=== PATIENT | male | born 1985 | race Hispanic/Latino ===

== ENCOUNTER 2021-01-30 22:28 | Inpatient (IN) | payer OTHER, SELFPAY ==
[2021-01-30 23:44] LABS: Anion Gap 15 mmol/L (10-20); BUN (Urea Nitrogen) 8 mg/dL (8.9-20.6); Calc. Creatinine Clearance 179 mL/min (70-130); Calcium 8.6 mg/dL (7.8-10.44); Carbon Dioxide 24 mmol/L (22-29); Chloride 103 mmol/L (98-107); Glucose 294 mg/dL (70-105); Magnesium 1.6 mg/dL (1.6-2.6); Phosphorus 2.4 mg/dL (2.3-4.7); Potassium 3.8 mmol/L (3.5-5.1); Sodium 138 mmol/L (136-145)
[2021-01-31] MEDS ORDERED: Communication Order-Pharmacy FS PRN (00:02)
[2021-01-31] MEDS ORDERED: D5 1/2 NS w/20 mEq KCL 1,000 ML IV PRN (00:06)
[2021-01-31] MEDS ORDERED: Sodium Chloride 0.9% 1,000 ML IV PRN ×2 (00:06)
[2021-01-31] MEDS ORDERED: NS 0.9% w/ 20 MEQ KCL 1,000 ML IV PRN (00:06)
[2021-01-31] MEDS ORDERED: Dextrose 5 %-0.45 % NaCl 1,000 ML IV PRN (00:06)
[2021-01-31] MEDS ORDERED: Electrolyte Replacement Protocol IVPB SCH (00:06)
[2021-01-31] MEDS ORDERED: INSULIN REGULAR IN 0.9 % NACL 100 UNIT in Premix Bag 1 BAG IVPB SCH (00:30)
[2021-01-31] MEDS ORDERED: Magnesium 2 GM/50 ML 2 GM in Premix Bag 1 BAG IVPB SCH ×2 (00:30→05:30)
[2021-01-31] MEDS: NS 0.9% w/ 20 MEQ KCL 1,000 ML IV PRN ×2 (01:06→04:46)
[2021-01-31] MEDS: Acetaminophen 325 MG TAB PO PRN ×2 (01:43→09:00)
[2021-01-31] MEDS: Clindamycin/D5W 900 MG in Premix Bag 1 BAG IVPB SCH ×2 (03:42→11:48)
[2021-01-31 03:47] LABS: Hemoglobin 10.6 g/dL (13.5-17.5); Mean Corpuscular Hemoglobin 29.4 pg (27.0-33.0); Mean Corpuscular Volume 88.9 fl (81.2-95.1); Mean Platelet Volume 9.2 fl (7.4-10.4); Platelet Count 415 10x3/uL (150-450); Red Blood Cell (RBC) Count 3.61 10x6/uL (4.32-5.72); White Blood Cell (WBC) Count 12.5 10x3/uL (3.5-10.5)
[2021-01-31 04:21] LABS: Syphilis Antibody Nonreactive (Nonreactive); Syphilis Antibody Index 0.04 S/CO (<1.00 Non-Reactive)
[2021-01-31 04:22] LABS: Hep B Surf Ag Non-Reactive S/CO (NonReactive)
[2021-01-31 04:24] LABS: HBSAg Index 0.17 S/CO (0-0.99)
[2021-01-31 04:33] LABS: Anion Gap 11 mmol/L (10-20); BUN (Urea Nitrogen) 11 mg/dL (8.9-20.6); Calc. Creatinine Clearance 193 mL/min (70-130); Calcium 8.9 mg/dL (7.8-10.44); Carbon Dioxide 27 mmol/L (22-29); Chloride 106 mmol/L (98-107); Glucose 110 mg/dL (70-105); Potassium 3.3 mmol/L (3.5-5.1); Sodium 141 mmol/L (136-145)
[2021-01-31] MEDS: Vancomycin HCl 1 GM in Sodium Chloride 0.9% 250 ML 250 ML IVPB SCH ×3 (04:46→19:53)
[2021-01-31 04:53] LABS: Phosphorus 2.2 mg/dL (2.3-4.7)
[2021-01-31] MEDS: Potassium Chloride 20 MEQ in Premix Bag 1 BAG IVPB SCH ×2 (06:41→09:00)
[2021-01-31] MEDS ORDERED: NS 0.9% w/ 20 MEQ KCL 1,000 ML ONE (08:17)
[2021-01-31] MEDS ORDERED: Potassium Chloride 20 MEQ/100 ML PREMIX BAG ONE (08:17)
[2021-01-31 09:00] LABS: Anion Gap 12 mmol/L (10-20); BUN (Urea Nitrogen) 9 mg/dL (8.9-20.6); Calc. Creatinine Clearance 236 mL/min (70-130); Calcium 7.7 mg/dL (7.8-10.44); Carbon Dioxide 22 mmol/L (22-29); Chloride 108 mmol/L (98-107); Glucose 193 mg/dL (70-105); Potassium 4.6 mmol/L (3.5-5.1); Sodium 137 mmol/L (136-145)
[2021-01-31] MEDS ORDERED: Lantus 1000 UNITS/10 ML VIAL SC SCH ×2 (09:00→10:30)
[2021-01-31] MEDS: Cefepime 2 GM in Sodium Chloride 0.9% 100 ML IVPB SCH ×2 (09:00→19:54)
[2021-01-31] MEDS: Pantoprazole 40 MG VIAL IVP SCH (09:00)
[2021-01-31] MEDS: Enoxaparin Sodium 40 MG/0.4 ML SYRINGE SC SCH (10:50)
[2021-01-31 11:57] LABS: Hep C IgG Ab Non-Reactive (NonReactive); Hep C Index 0.11 S/CO (0-0.79)
[2021-01-31 15:12] LABS: Potassium 3.7 mmol/L (3.5-5.1)
[2021-01-31] MEDS ORDERED: Dextrose 5% in Water 1,000 ML IV PRN (16:45)
[2021-01-31] MEDS ORDERED: Dextrose 50% Abboject 50 ML SYRINGE SLOW IVP PRN (16:45)
[2021-01-31] MEDS ORDERED: Diazepam 2 MG TAB PO PRN (17:37)
[2021-01-31] MEDS ORDERED: Potassium Bicarbonate/Cit Ac 20 MEQ TAB PO SCH (17:45)
[2021-01-31] MEDS ORDERED: Diazepam 5 MG TAB PO SCH (18:30)
[2021-01-31 19:32] LABS: Vancomycin, Trough 9.1 ug/mL
[2021-01-31] MEDS: HumaLOG 300 UNITS/3 ML VIAL SC PRN (20:10)
[2021-02-01] MEDS ORDERED: VANCOMYCIN 1.25 GM/250 ML BAG 1 GM in Premix Bag 1 BAG IVPB SCH (04:00)
[2021-02-01 05:08] LABS: Anion Gap 15 mmol/L (10-20); BUN (Urea Nitrogen) 10 mg/dL (8.9-20.6); Calc. Creatinine Clearance 166 mL/min (70-130); Calcium 8.7 mg/dL (7.8-10.44); Carbon Dioxide 25 mmol/L (22-29); Chloride 101 mmol/L (98-107); Glucose 387 mg/dL (70-105); Potassium 4.4 mmol/L (3.5-5.1); Sodium 137 mmol/L (136-145)
[2021-02-01 05:22] LABS: HIV (1/2) Antibody/Antigen Non-Reactive (NonReactive); HIV 1/2 INDEX 0.07 S/CO (<1.00)
[2021-02-01] MEDS: Cefepime 2 GM in Sodium Chloride 0.9% 100 ML IVPB SCH (08:30)
[2021-02-01] MEDS: Pantoprazole 40 MG VIAL IVP SCH (08:30)
[2021-02-01] MEDS ORDERED: Lantus 1000 UNITS/10 ML VIAL SC SCH (09:00)
[2021-02-01] MEDS ORDERED: Neomycin-Polymyxin 1 ML AMP ONE (10:59)
[2021-02-01] MEDS ORDERED: Ondansetron PF 4 MG/2 ML Vial ONE (11:10)
[2021-02-01] MEDS ORDERED: Midazolam HCl 2 mg/2 ml Vial ONE (11:10)
[2021-02-01] MEDS ORDERED: Fentanyl 250 MCG/5 ML VIAL ONE (11:10)
[2021-02-01] MEDS ORDERED: PROPOFOL 20 ML ONE ×2 (11:10→11:37)
[2021-02-01] MEDS ORDERED: Lidocaine 1% PF 5 ML VIAL ONE (11:10)
[2021-02-01] MEDS ORDERED: VANCOMYCIN 1.25 GM/250 ML BAG 1.25 GM in Premix Bag 1 BAG IVPB SCH ×2 (12:00→15:00)
[2021-02-01 13:17] LABS: BF Color Red; Clarity Hazy (Clear); Tube # EDTA
[2021-02-01] MEDS: Enoxaparin Sodium 40 MG/0.4 ML SYRINGE SC SCH (13:42)
[2021-02-01] MEDS: HumaLOG 300 UNITS/3 ML VIAL SC PRN ×3 (13:56→21:45)
[2021-02-01 14:17] LABS: BF Segmented Neutrophils 97 %; Cell Count Non Hematic 2 %; Lymphocytes 1 %
[2021-02-01] MEDS: traMADol HCl 50 MG TAB PO PRN (16:15)
[2021-02-01] MEDS ORDERED: Lorazepam 1 MG TAB PO SCH (19:30)
[2021-02-01] MEDS: Lantus 1000 UNITS/10 ML VIAL SC SCH (21:05)
[2021-02-01] MEDS: VANCOMYCIN 1.25 GM/250 ML BAG 1.25 GM in Premix Bag 1 BAG IVPB SCH (21:28)
[2021-02-02] MEDS: VANCOMYCIN 1.25 GM/250 ML BAG 1.25 GM in Premix Bag 1 BAG IVPB SCH ×3 (05:12→22:00)
[2021-02-02] MEDS: HumaLOG 300 UNITS/3 ML VIAL SC PRN ×4 (05:53→20:17)
[2021-02-02 06:15] LABS: Hemoglobin 9.7 g/dL (13.5-17.5); Mean Corpuscular HGB CONC 32.8 g/dL (32.0-36.0); Mean Corpuscular Hemoglobin 30.2 pg (27.0-33.0); Mean Corpuscular Volume 92.2 fl (81.2-95.1); Mean Platelet Volume 9.4 fl (7.4-10.4); Platelet Count 438 10x3/uL (150-450); RBC Distribution Width 12.2 % (11.5-14.5); Red Blood Cell (RBC) Count 3.21 10x6/uL (4.32-5.72); White Blood Cell (WBC) Count 10.4 10x3/uL (3.5-10.5)
[2021-02-02 06:26] LABS: Anion Gap 13 mmol/L (10-20); BUN (Urea Nitrogen) 17 mg/dL (8.9-20.6); Calc. Creatinine Clearance 179 mL/min (70-130); Calcium 8.6 mg/dL (7.8-10.44); Carbon Dioxide 28 mmol/L (22-29); Chloride 99 mmol/L (98-107); Glucose 347 mg/dL (70-105); Potassium 4.4 mmol/L (3.5-5.1); Sodium 136 mmol/L (136-145)
[2021-02-02 06:35] LABS: MDiff Complete? YES
[2021-02-02 06:38] LABS: Eosinophils 2 % (0-10); Lymphocytes 23 % (21-51); Monocytes 8 % (0-10); Neutrophil 67 % (42-75)
[2021-02-02 06:40] LABS: Platelet Morphology Comment Appears Adequate; RBC Morphology Normal
[2021-02-02] MEDS ORDERED: Glimepiride 2 MG TAB PO SCH ×2 (08:00→08:30)
[2021-02-02] MEDS: Enoxaparin Sodium 40 MG/0.4 ML SYRINGE SC SCH (09:20)
[2021-02-02] MEDS: Lorazepam 1 MG TAB PO SCH (09:21)
[2021-02-02] MEDS: Pantoprazole 40 MG VIAL IVP SCH (09:21)
[2021-02-02] MEDS: Lantus 1000 UNITS/10 ML VIAL SC SCH ×2 (09:21→20:16)
[2021-02-02 13:42] LABS: Vancomycin, Trough 15.5 ug/mL
[2021-02-03] MEDS: traMADol HCl 50 MG TAB PO PRN (00:58)
[2021-02-03 04:42] LABS: Anion Gap 13 mmol/L (10-20); BUN (Urea Nitrogen) 19 mg/dL (8.9-20.6); Calc. Creatinine Clearance 182 mL/min (70-130); Calcium 8.6 mg/dL (7.8-10.44); Carbon Dioxide 29 mmol/L (22-29); Chloride 101 mmol/L (98-107); Glucose 345 mg/dL (70-105); Potassium 4.5 mmol/L (3.5-5.1); Sodium 138 mmol/L (136-145)
[2021-02-03 05:48] VITALS: BMI 27.1
[2021-02-03] MEDS: VANCOMYCIN 1.25 GM/250 ML BAG 1.25 GM in Premix Bag 1 BAG IVPB SCH ×3 (06:17→21:43)
[2021-02-03] MEDS: HumaLOG 300 UNITS/3 ML VIAL SC PRN ×3 (06:18→18:04)
[2021-02-03] MEDS: Lantus 1000 UNITS/10 ML VIAL SC SCH ×2 (08:54→22:15)
[2021-02-03] MEDS: Lorazepam 1 MG TAB PO SCH (08:54)
[2021-02-03] MEDS: Glimepiride 2 MG TAB PO SCH (08:54)
[2021-02-03] MEDS: Pantoprazole 40 MG VIAL IVP SCH (08:54)
[2021-02-03] MEDS: Enoxaparin Sodium 40 MG/0.4 ML SYRINGE SC SCH (08:54)
[2021-02-03] MEDS: metFORMIN 500 MG TAB PO SCH (17:09)
[2021-02-03 18:26] LABS: Hemoglobin A1c 13.9 % (4.0-6.0)
[2021-02-03] MEDS: Diazepam 5 MG TAB PO PRN (22:39)
[2021-02-04 05:10] LABS: Anion Gap 14 mmol/L (10-20); BUN (Urea Nitrogen) 15 mg/dL (8.9-20.6); Calc. Creatinine Clearance 195 mL/min (70-130); Calcium 9.2 mg/dL (7.8-10.44); Carbon Dioxide 28 mmol/L (22-29); Chloride 99 mmol/L (98-107); Glucose 194 mg/dL (70-105); Potassium 4.7 mmol/L (3.5-5.1); Sodium 136 mmol/L (136-145)
[2021-02-04] MEDS: VANCOMYCIN 1.25 GM/250 ML BAG 1.25 GM in Premix Bag 1 BAG IVPB SCH ×3 (06:11→22:56)
[2021-02-04] MEDS: Enoxaparin Sodium 40 MG/0.4 ML SYRINGE SC SCH (08:18)
[2021-02-04] MEDS: Pantoprazole 40 MG VIAL IVP SCH (08:18)
[2021-02-04] MEDS: Lorazepam 1 MG TAB PO SCH (08:18)
[2021-02-04] MEDS: Lantus 1000 UNITS/10 ML VIAL SC SCH ×2 (08:18→20:56)
[2021-02-04] MEDS: metFORMIN 500 MG TAB PO SCH ×2 (08:18→17:29)
[2021-02-04] MEDS: Glimepiride 2 MG TAB PO SCH (08:18)
[2021-02-04] MEDS: Diazepam 5 MG TAB PO PRN (10:00)
[2021-02-04] MEDS: HumaLOG 300 UNITS/3 ML VIAL SC PRN ×2 (12:29→18:38)
[2021-02-04 13:24] LABS: Vancomycin, Trough 14.9 ug/mL
[2021-02-04] MEDS ORDERED: Metoprolol Tartrate 25 MG TAB PO SCH (21:00)
[2021-02-05] MEDS: VANCOMYCIN 1.25 GM/250 ML BAG 1.25 GM in Premix Bag 1 BAG IVPB SCH (05:24)
[2021-02-05] MEDS: Diazepam 5 MG TAB PO PRN (05:25)
[2021-02-05] MEDS: HumaLOG 300 UNITS/3 ML VIAL SC PRN ×2 (05:43→12:23)
[2021-02-05 05:57] LABS: Anion Gap 16 mmol/L (10-20); BUN (Urea Nitrogen) 18 mg/dL (8.9-20.6); Calc. Creatinine Clearance 161 mL/min (70-130); Calcium 9.6 mg/dL (7.8-10.44); Carbon Dioxide 28 mmol/L (22-29); Chloride 99 mmol/L (98-107); Glucose 213 mg/dL (70-105); Potassium 4.5 mmol/L (3.5-5.1); Sodium 138 mmol/L (136-145)
[2021-02-05 06:19] LABS: Thyroid Stimulating Hormone 2.5886 uIU/mL (0.35-4.94)
[2021-02-05] MEDS ORDERED: Glimepiride 4 MG TAB PO SCH (08:00)
[2021-02-05 08:09] LABS: Free T4 (Free Thyroxine) 0.96 ng/dL (0.70-1.48)
[2021-02-05] MEDS: Pantoprazole 40 MG VIAL IVP SCH (08:39)
[2021-02-05] MEDS: metFORMIN 500 MG TAB PO SCH ×2 (08:39→16:42)
[2021-02-05] MEDS: Enoxaparin Sodium 40 MG/0.4 ML SYRINGE SC SCH (08:39)
[2021-02-05] MEDS: Clindamycin 150 MG CAP PO SCH ×2 (08:39→14:05)
[2021-02-05] MEDS: Lantus 1000 UNITS/10 ML VIAL SC SCH (08:39)
[2021-02-05] MEDS ORDERED: Metoprolol Tartrate 25 MG TAB PO SCH (09:00)
[2021-02-05 15:11] VITALS: BP 115/64; TEMP 97.6
== END 2021-02-05 17:27 | disposition home or self-care (01) | DRG 853 ==
LOC: CSHICU 22:28 → CSHTELE 02-01 15:09
PROVIDERS: ADMIT Family Medicine; ATTEND Internal Medicine
PROC: 0MBN0ZZ Excision of Right Knee Bursa and Ligament, Open Approach (ICD-10-PCS; principal; 2021-01-30)
PROC: 0S9C0ZZ Drainage of Right Knee Joint, Open Approach (ICD-10-PCS; 2021-01-30)
DX: A41.9 Sepsis, unspecified organism (principal); U07.1 COVID-19; L03.115 Cellulitis of right lower limb; E13.65 Other specified diabetes mellitus with hyperglycemia; F19.10 Other psychoactive substance abuse, uncomplicated; M70.41 Prepatellar bursitis, right knee; R00.0 Tachycardia, unspecified
CPT/HCPCS: 36415; 36416; 80048; 80202; 83036; 83735; 84100; 84439; 84443; 85007; 85027; 86140; 86780; 86803; 87070; 87077; 87186; 87205; 87340; 87389; 89051; 93005; 93010; 94760; C9113; J0692; J1650; J1815; J2250; J2405; J2704; J3010; J3370; J3475; J3480; J3490; J7050

== ENCOUNTER 2021-02-07 13:47 | Outpatient (CLI) | payer OTHER | END 2021-02-07 13:48 | disposition home or self-care (01) | LOC: CSHWCC 13:47 | PROVIDERS: ATTEND Nurse Practitioner Family | DX: U07.1 COVID-19 (principal); T81.89XD Other complications of procedures, not elsewhere classified, subsequent encounter; I87.2 Venous insufficiency (chronic) (peripheral); L03.115 Cellulitis of right lower limb; R60.0 Localized edema; A41.9 Sepsis, unspecified organism; A49.02 Methicillin resistant Staphylococcus aureus infection, unspecified site; E11.40 Type 2 diabetes mellitus with diabetic neuropathy, unspecified; E11.65 Type 2 diabetes mellitus with hyperglycemia; F14.10 Cocaine abuse, uncomplicated | CPT/HCPCS: 36416 ==